=== PATIENT | male | born 1965 | race Caucasian/White ===

== ENCOUNTER 2022-01-08 15:24 | Outpatient (REF) | payer MEDICAID, SELFPAY ==
--- NOTE | ~2022-01-08 | XR_ITS ---
EXAMINATION: XR SHOULDER, RIGHT CLINICAL INFORMATION: Right shoulder. COMPARISON: None TECHNIQUE: AP external rotation, Grashey, scapular Y, and axillary views of the right shoulder. FINDINGS: The glenohumeral joint space and the AC joint space is maintained normal. No visible fracture or bony abnormality seen. No loose bodies. The soft tissues are normal. XR/XR shoulder RT min 2V IMPRESSION: Unremarkable right shoulder exam.
== END 2022-01-08 15:25 | disposition home or self-care (01) ==
LOC: HO.XRAY 15:24
PROVIDERS: PCP Internal Medicine; Visit Provider Internal Medicine
DX: M25.511 Pain in right shoulder (principal)
CPT/HCPCS: 73030

== ENCOUNTER → 2022-02-21 14:20 | Outpatient (BNVA) | payer MEDICAID, SELFPAY | PROVIDERS: PCP Internal Medicine; Visit Provider Physician Assistant | DX: M75.51 Bursitis of right shoulder (principal) | CPT/HCPCS: 20610; 99202; J1040 ==

== ENCOUNTER 2023-12-09 09:51 | Outpatient (AMB) | payer MEDICAID, SELFPAY ==
--- NOTE | 2023-12-09 10:05 | A.OFFVIS_ITS ---
Intake Vital Signs 12/09/23 10:08 Height 6 ft 1 in Weight 158 lb BMI 20.8 BP 146/82 H Blood Pressure Location Rt brachial Position Sitting Pulse 68 Intake Visit Reasons: LIH Intake Note: Patient referred by PCP Cora Mirza for LIH. Gurdeep noticed left groin lump 4wks ago. Patient c/o: burning sensation, pain exacerbated with heavy lifting. 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 He wished to have this repaired. He otherwise has regular bowel habits. No other GI issues or complaints. Patient is quite active and does significant heavy lifting both at work and at home. Chart was reviewed and patient evaluated. Patient has a very significant smoking history. One pack per day plus for 40+ years. [facility] Medical History (Updated 12/09/23 @ 10:11 by EVIN Melgoza) Migraines Femur fracture Social History Patient Tobacco Use Status: Current everyday Tobacco user Current occupational status: employed Current occupation: maintenance team leader, rt hand Physical Exam Vital Signs: Last Vital Signs Pulse 68 12/09/23 10:08 BP 146/82 H 12/09/23 10:08 BMI result Body Mass Index 20.8 Chest Other: Chest breath sounds bilaterally, HS 1 and 2. GI Other: Patient was examined both supine and standing with Valsalva. Abdomen is soft. Benign. Right groin negative. Genitalia within normal limits. Very large left inguinal hernia reducible. Assessment & Plan Assessment & Plan (1) Left inguinal hernia: Code(s): K40.90 - Unilateral inguinal hernia, without obstruction or gangrene, not specified as recurrent Plan Risks, benefits, alternatives of open left inguinal hernia repair with possible mesh were reviewed with the patient and included but not limited to bleeding, infection, recurrence, numbness, pain, scarring and the patient wishes to proceed. All questions answered. Arrangements were made for this. Patient is also encouraged to discontinue smoking. Coding Level of Care Code New Pt Level 5 (58111) Diagnoses Left inguinal hernia K40.90
[2023-12-09 10:08] VITALS: BP 146/82; PULSE 68; BMI 20.8
== END 2023-12-09 10:25 | disposition home or self-care (01) ==
PROVIDERS: PCP Internal Medicine; Referring Provider Internal Medicine; Visit Provider Surgery
DX: K40.90 Unilateral inguinal hernia, without obstruction or gangrene, not specified as recurrent (principal)
CPT/HCPCS: 99204

== ENCOUNTER → 2023-12-09 09:51 | Outpatient (BNVA) | payer MEDICAID, SELFPAY | PROVIDERS: PCP Internal Medicine; Referring Provider Internal Medicine; Visit Provider Surgery | DX: K40.90 Unilateral inguinal hernia, without obstruction or gangrene, not specified as recurrent (principal) | CPT/HCPCS: 99202 ==

== ENCOUNTER 2024-01-23 06:59 | Day surgery (SDC) | payer MEDICAID, SELFPAY ==
[2024-01-21 08:18] VITALS: BMI 20.8
--- NOTE | 2024-01-21 13:12 | P.CONAN_ITS ---
Documented by User: Estefania Potts NP 01/21/24 13:12 HPI - Anesthesia Eval Consult details Narrative: 58yo M for Left Open Repair, Reducible Hernia Inguinal with mesh PMFSH Active Problems Active Problems: All Active Problems (Updated 12/09/23 @ 10:11 by EVIN Melgoza) Left inguinal hernia (Acute) Subacromial bursitis of right shoulder joint (Acute) Past Medical History Medical History Femur fracture, right Migraines Femur fracture Social History Social History (Updated 01/23/24 @ 08:13 by Melisa Muir MD) Patient Tobacco Use Status: Current everyday Tobacco user Tobacco use type: Cigarette Cigarette Packs Per Day: 1 Cigarettes Per Day: 20.0 Substance Use Type: Marijuana Current occupational status: employed Current occupation: telephone maintenance mechanic, rt hand Meds Allergies Allergy/AdvReac Type Severity Reaction Status Date / Time No Known Allergies Allergy Verified 01/23/24 07:17 Home Medications ?Medication ?Instructions ?Recorded ?Confirmed ?Last Taken ?Type ibuprofen 800 mg tablet 800 mg PO BID 02/21/22 01/23/24 Unknown History Exam Height,Weight and Vital Signs: Height 6 ft 1 in Weight 71.668 kg Assessment and Plan Assessment Anesthesia Assessment: Chart Reviewed Documented by User: Melisa Muir MD 01/23/24 08:15 HPI - Anesthesia Eval Consult details Narrative: 58yo M for Open Repair Left Reducible Inguinal Hernia with mesh PMFSH Active Problems Active Problems: All Active Problems (Updated 01/23/24 @ 07:59 by Melisa Muir MD) Left inguinal hernia (Acute) Subacromial bursitis of right shoulder joint (Acute) ETOH daily Marijuana Smoker Past Medical History Medical History Femur fracture, right Migraines Femur fracture Family History Family history of problems with anesthesia: No Surgical History History of Problems with Anesthesia: No Social History Social History (Updated 01/23/24 @ 08:13 by Melisa Muir MD) Patient Tobacco Use Status: Current everyday Tobacco user Tobacco use type: Cigarette Cigarette Packs Per Day: 1 Cigarettes Per Day: 20.0 Substance Use Type: Marijuana Current occupational status: employed Current occupation: telephone maintenance mechanic, rt hand Meds Allergies Allergy/AdvReac Type Severity Reaction Status Date / Time No Known Allergies Allergy Verified 01/23/24 07:17 Home Medications ?Medication ?Instructions ?Recorded ?Confirmed ?Last Taken ?Type ibuprofen 800 mg tablet 800 mg PO BID 02/21/22 01/23/24 Unknown History Exam Height,Weight and Vital Signs: Height 6 ft 1 in Weight 71.668 kg Vital Signs Temp Pulse Resp BP Pulse Ox O2 Del Method 01/23/24 07:37 98.4 F 74 16 144/85 H 99 Room Air Airway Mallampati Class: II TM Dist: >3cm Neck ROM: Full Loose/Missing/Broken Teeth: Yes (Edentulous) Heart: RRR Lungs: CTAB Assessment and Plan Assessment Anesthesia Assessment: Anesthesia Plan Discussed and Chart Reviewed Final Anesthetic Review Family History of Problems with Anesthesia: No History of Problems with Anesthesia: No NPO: Yes ASA Class: III Final Preanesthetic Review: No Changes in Pt Med Stat, Meds/Allgs Chart Reviewed, Consent Obtained/Reviewed and Anes Risks/Benef Reviewed Patient Risk: Intermediate Procedure Risk: Low Assessment/Block/Sedation in SS: Assess/Block/Sedation-SS Anesthetic Plan Anesthetic Plan: GA Disposition: Standard PACU
--- NOTE | 2024-01-22 14:43 | MHC.SHP ---
Pre-Procedural Eval Section A - 24 Hr Update-Section A only Date of Service: 01/22/24 The patient is an INPATIENT: No Changes since office visit: No Cold of Flu in the past 2 weeks, No New Medical Problems, No Changes in Medication and No Patient answered all questions Section B - Complete if H&P > 30 days Chief Complaint: Unilateral inguinal hernia, without obstruction or Allergies: Allergies Allergy/AdvReac Type Severity Reaction Status Date / Time none Allergy Unknown none Uncoded 12/09/23 10:10 Plan I have reviewed the history and physical and performed a pertinent physical examination on my patient. No changes have occurred unless specified. Time Spent With Patient Time: Total time managing care of this patient today ____ minutes.
[2024-01-23 07:18] VITALS: BMI 21.0
--- NOTE | 2024-01-23 07:36 | MHC.SHP ---
Pre-Procedural Eval Section A - 24 Hr Update-Section A only Date of Service: 01/23/24 The patient is an INPATIENT: No Changes since office visit: No Cold of Flu in the past 2 weeks, No New Medical Problems, No Changes in Medication and No Patient answered all questions The patient has been examined within 24 hours of the surgical procedure. The History & Physical has been completed within 30 days and I have reviewed it.: Yes Section B - Complete if H&P > 30 days Chief Complaint: Unilateral inguinal hernia, without obstruction or Allergies: Allergies Allergy/AdvReac Type Severity Reaction Status Date / Time No Known Allergies Allergy Verified 01/23/24 07:17 Plan I have reviewed the history and physical and performed a pertinent physical examination on my patient. No changes have occurred unless specified. Time Spent With Patient Time: Total time managing care of this patient today ____ minutes.
[2024-01-23 07:37] VITALS: BP 144/85; PULSE 74; RESP 16; TEMP 36.9; O2SAT 99
[2024-01-23] MEDS: Lactated Ringers 1,000 ML 100 ML IVCONT (07:46)
--- NOTE | 2024-01-23 09:46 | W.PM.OPN ---
Operative Note Operative Note Date of Service: 01/23/24 Narrative: Preoperative diagnosis: [] Left inguinal hernia Postop diagnosis: [] The same Procedure [] open left inguinal herniorrhaphy with Bard mesh Surgeon: [] Harley Business Economist: [] Diamond kelly Type of Anesthesia: [] General Indication for surgery: [] Patient had a very large indirect and a small direct left inguinal hernia. Findings: [] Patient brought to the operating room, placed on operative table in supine position, after adequate level of general anesthesia was induced, the left groin was prepped and draped in usual sterile fashion. Using a small left para inguinal incision, this carried down through skin, subcutaneous tissue, Nicol's fascia. External oblique fibers were opened their direction with care to isolate and preserve the ilioinguinal nerve throughout the procedure. Spermatic cord was identified and retracted from the field. Exploration of the cord demonstrated a large indirect hernia sac which was reduced. Patient also had a small direct inguinal hernia. A Bard mesh was placed in the indirect defect and sutured inferiorly to the inguinal ligament, and superiorly to the transversalis fascia using interrupted 0 Ethibond suture. At completion of procedure, mesh also covered the inguinal floor. This was in good position with no gallops. Wounds irrigated, secured hemostasis, and closed in the following manner; external oblique fascia was closed using running 2-0 Vicryl suture. Nicol's fascia was reapproximated using interrupted 3-0 Vicryl sutures. Interrupted inverted dermal 3-0 Vicryl sutures followed by running subcuticular 4-0 Vicryl sutures were placed. Steri-Strips and sterile dressings were applied. Patient underwent ilioinguinal block at completion and wound infiltration at the end with 0.5% Marcaine/1% lidocaine. Ipsilateral testicle was intrascrotal at completion of the procedure. Sponge, needle, and instrument counts reported correct. Patient tolerated the procedure well and emerged from anesthesia stable condition. EBL minimal
[2024-01-23 10:00] VITALS: BP 120/73; PULSE 60; RESP 16; TEMP 36.7; O2SAT 100
[2024-01-23 10:05] VITALS: BP 140/77; PULSE 65; RESP 16; O2SAT 96
[2024-01-23 10:10] VITALS: BP 124/76; PULSE 65; RESP 20; O2SAT 96
[2024-01-23 10:15] VITALS: BP 133/79; PULSE 62; RESP 20; O2SAT 96
[2024-01-23 10:30] VITALS: BP 133/77; PULSE 56; RESP 20; TEMP 36.6; O2SAT 98
== END 2024-01-23 11:05 | disposition home or self-care (01) ==
PROVIDERS: PCP Internal Medicine; Visit Provider Surgery
PROC: (CPT 49505; principal; 2024-01-23 09:20)
DX: K40.90 Unilateral inguinal hernia, without obstruction or gangrene, not specified as recurrent (principal); F17.210 Nicotine dependence, cigarettes, uncomplicated; G43.909 Migraine, unspecified, not intractable, without status migrainosus; Z87.81 Personal history of (healed) traumatic fracture; Z79.1 Long term (current) use of non-steroidal anti-inflammatories (NSAID)
CPT/HCPCS: 49505; C1781; J0131; J0690; J2250; J2405; J2704; J2795; J3010

== ENCOUNTER → 2024-01-23 06:59 | Outpatient (BNV) | payer MEDICAID, SELFPAY | PROVIDERS: PCP Internal Medicine; Visit Provider Surgery | DX: K40.90 Unilateral inguinal hernia, without obstruction or gangrene, not specified as recurrent (principal) | CPT/HCPCS: 49505 ==

== ENCOUNTER 2024-02-03 08:53 | Outpatient (AMB) | payer MEDICAID, SELFPAY ==
--- NOTE | 2024-02-03 09:00 | A.OFFVIS_ITS ---
Intake Intake Visit Reasons: S/p LIH repair Intake Note: Patient here s/p LIH repair. Reports incisions healing well. Patient c/o: pressure along incision after sneezing over the weekend. No longer taking rx pain meds. SX: 01-23-24. 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 Aside from incisional discomfort which is improving is otherwise doing well. He is time diet. Having regular bowel habits. He is increasing his activity level. Patient would like to return to work with light duty. [facility] Medical History Femur fracture, right Migraines Femur fracture Surgical History Left inguinal hernia (01/23/24) Social History Patient Tobacco Use Status: Current everyday Tobacco user Tobacco use type: Cigarette Cigarette Packs Per Day: 1 Cigarettes Per Day: 20.0 Substance Use Type: Marijuana Current occupational status: employed Current occupation: plasterer maintenance, rt hand Physical Exam GI Other: Abdomen is soft. Hernia wound clean dry and intact healing well Assessment & Plan Assessment & Plan (1) Status post hernia repair: Code(s): Z98.890 - Other specified postprocedural states; Z87.19 - Personal history of other diseases of the digestive system (2) Left inguinal hernia: Onset Date: 01/23/24 Comment: Dr. Eugenio Souza Code(s): K40.90 - Unilateral inguinal hernia, without obstruction or gangrene, not specified as recurrent Plan Patient has been given local instructions. He will be given a note to start work week from yesterday and 4 weeks light duty. If there are issues or complaints during his interim, he has been instructed to call the office will otherwise follow-up p.r.n.. All questions answered. Coding Level of Care Code Global (30202) Diagnoses Status post hernia repair Z98.890; Z87.19 Left inguinal hernia K40.90
== END 2024-02-03 09:15 | disposition home or self-care (01) ==
PROVIDERS: PCP Internal Medicine; Visit Provider Surgery
DX: Z98.890 Other specified postprocedural states (principal); Z87.19 Personal history of other diseases of the digestive system; K40.90 Unilateral inguinal hernia, without obstruction or gangrene, not specified as recurrent
CPT/HCPCS: 99024

== ENCOUNTER → 2024-02-03 08:53 | Outpatient (BNVA) | payer MEDICAID, SELFPAY | PROVIDERS: PCP Internal Medicine; Visit Provider Surgery | DX: K40.90 Unilateral inguinal hernia, without obstruction or gangrene, not specified as recurrent (principal); Z87.19 Personal history of other diseases of the digestive system; Z98.890 Other specified postprocedural states | CPT/HCPCS: 99212 ==